=== PATIENT | male | born 1965 | race Caucasian/White ===

== ENCOUNTER 2018-06-09 09:05 | Outpatient (CLI) | payer MEDICARE ==
[2018-06-09 10:26] LABS: Hemoglobin 13.6 g/dL (14.0-18.0); Mean Corpuscular HGB CONC 33.1 g/dL (32.0-36.0); Mean Corpuscular Hemoglobin 30.6 pg (27.0-31.0); Mean Corpuscular Volume 92.4 fL (78.0-98.0); Mean Platelet Volume 7.2 fL (7.4-10.4); Platelet Count 258 thou/uL (130-400); RBC Distribution Width 11.8 % (11.5-14.5); Red Blood Cell (RBC) Count 4.45 mill/uL (4.70-6.10); White Blood Cell (WBC) Count 9.5 thou/uL (4.8-10.8)
[2018-06-09 10:39] LABS: INR-International Normal Ratio 0.9; Prothrombin Time 12.6 SEC (12.0-14.7)
[2018-06-09 10:40] LABS: PTT 30.3 SEC (22.9-36.1)
[2018-06-09 10:47] LABS: ALT (SGPT) 24 U/L (8-55); AST (SGOT) 20 U/L (5-34); Albumin 4.4 g/dL (3.5-5.0); Alkaline Phosphatase 107 U/L (40-150); Anion Gap 14 mmol/L (10-20); BUN (Urea Nitrogen) 17 mg/dL (8.4-25.7); Bilirubin, Total 0.6 mg/dL (0.2-1.2); Calc. Creatinine Clearance 0 mL/min (70-130); Calcium 9.3 mg/dL (7.8-10.44); Carbon Dioxide 27 mmol/L (22-29); Chloride 100 mmol/L (98-107); Estimated GFR-MDRD Greater than 90; Globulin 2.6 g/dL (2.4-3.5); Glucose 102 mg/dL (70-105); Potassium 4.3 mmol/L (3.5-5.1); Sodium 137 mmol/L (136-145)
--- NOTE | 2018-06-09 12:30 | EKG ---
Test Reason : Blood Pressure : / mmHG Vent. Rate : 067 BPM Atrial Rate : 067 BPM P-R Int : 138 ms QRS Dur : 094 ms QT Int : 406 ms P-R-T Axes : 027 080 030 degrees QTc Int : 429 ms Normal sinus rhythm Cannot rule out Anterior infarct (cited on or before 17-JUN-2011) Abnormal ECG When compared with ECG of 02-SEP-2011 09:08, No significant change was found Confirmed by WOJCIECH MIDDLETON, . SSinan ([id number]) on 06/09/2018 12:29:49 PM Referred By: PRITESH Confirmed By:DR. Shanell JEFFREY MD
== END 2018-06-09 09:06 | disposition home or self-care (01) ==
LOC: LABBT 09:05
PROVIDERS: ATTEND Internal Medicine Cardiovascular Disease
DX: Z01.818 Encounter for other preprocedural examination (principal); R94.39 Abnormal result of other cardiovascular function study
CPT/HCPCS: 80053; 85027; 85610; 85730; 93005; 93010

== ENCOUNTER → 2018-06-11 | Day surgery (SDC) | payer MEDICARE ==
[2018-06-09 09:22] VITALS: BMI 39.0
[~2018-06-11] MED LIST: Fentanyl 100 MCG/2 ML VIAL ONE; Heparin 10,000 UNITS/1 ML VIAL ONE; Lidocaine 1% (PF) 30 ML VIAL ONE; Midazolam HCl 2 mg/2 ml Vial ONE; Protamine Sulfate 50 MG/5 ML VIAL ONE
[2018-06-11 07:04] LABS: Cardiac Risk 5.9 (Less than 4.5)
--- NOTE | 2018-06-11 14:06 | DIS ---
Discharge summary after outpatient cardiac catheterization. DISCHARGE DIAGNOSES: 1. Normal coronary arteries. 2. Noncardiac chest pain. 3. History of diastolic heart failure. 4. Moderate chronic obstructive pulmonary disease with FEV1 of 67%. 5. Hypercholesterolemia. 6. Smoker. 7. Chronic back pain. 8. Positive family history. DISCHARGE MEDICATIONS: Pravastatin will be increased from 20 to 40 mg at bedtime, Prozac 10 mg daily, furosemide 40 mg q.a.m. DISCHARGE DISPOSITION: The patient should follow up with Dr. Jasmine in 6 weeks for cholesterol testing with the goal LDL of less than 100. HOSPITAL COURSE: Mr. Amaya underwent cardiac catheterization, which revealed normal left ventricular function and normal coronary arteries. His LDL was 125 and pravastatin was increased from 20 to 40 mg at bedtime. He was observed during the day and then discharged. YOKASTAD
== END ==
LOC: CCL 06:02
PROVIDERS: ATTEND Internal Medicine Cardiovascular Disease
DX: R07.89 Other chest pain (principal); E78.00 Pure hypercholesterolemia, unspecified; I50.30 Unspecified diastolic (congestive) heart failure; F17.200 Nicotine dependence, unspecified, uncomplicated; J44.9 Chronic obstructive pulmonary disease, unspecified; G89.29 Other chronic pain; M54.9 Dorsalgia, unspecified; Z79.899 Other long term (current) drug therapy; Z88.0 Allergy status to penicillin
CPT/HCPCS: 80061; 93458; C1769; 99152; J1644; J2001; J2250; J2720; J3010